=== PATIENT | female | born 1970 | race Caucasian/White ===

== ENCOUNTER 2017-11-24 20:15 | Emergency (ER) | payer OTHER, BC ==
[~2017-11-24] VITALS: Ht 170.2 cm; Wt 75.0 kg
[2017-11-24] MEDS ORDERED: IBUPROFEN 800 MG TABLET. PO ONE (20:45)
--- NOTE | 2017-11-24 22:09 | PHYS DOC ---
Adult General Chief Complaint Chief Complaint: LOWEREXTREMITY INJURY HPI HPI 47-year-old female came to the emergency department after an injury to her left mid leg. Patient was working outside on her forearm when her leg was pinned against the surface by part of a tractor. The injury was fci between her knee and her ankle. She is able to bear weight but the area is sore. The calf muscles are sore when she moves her ankle. Minimal local swelling. Denies knee or ankle pain. No other complaints. Patient does not take blood thinners and has no history of coagulopathy Review of Systems Review of Systems Constitutional: Denies fever or chills [] Eyes: Denies change in visual acuity, redness, or eye pain [] HENT: Denies nasal congestion or sore throat [] Respiratory: Denies cough or shortness of breath [] Cardiovascular: No additional information not addressed in HPI [] GI: Denies abdominal pain, nausea, vomiting, bloody stools or diarrhea [] : Denies dysuria or hematuria [] Musculoskeletal: Denies back pain or joint pain [] Integument: Denies rash or skin lesions [] Neurologic: Denies headache, focal weakness or sensory changes [] Endocrine: Denies polyuria or polydipsia [] All other systems were reviewed and found to be within normal limits, except as documented in this note. Current Medications Current Medications Current Medications Medications (Trade) Dose Ordered Sig/Tonio Start Time Stop Time Status Last Admin Dose Admin Ibuprofen (Motrin) 800 mg 1X ONCE 11/24/17 20:45 11/24/17 20:48 DC 11/24/17 21:23 800 MG Allergies Allergies Allergies Coded Allergies Type Severity Reaction Last Updated Verified No Known Drug Allergies 11/24/17 No Physical Exam Physical Exam Left lower extremity with mild soft tissue tenderness lateral aspect left mid leg. No tenderness of the knee or ankle. No hematoma. Trace ecchymosis but normal range of motion of foot and ankle without difficulty. Soft compartments. Neurovascularly intact distally. Constitutional: Well developed, well nourished, no acute distress, non-toxic appearance. [] HENT: Normocephalic, atraumatic, bilateral external ears normal, oropharynx moist, no oral exudates, nose normal. [] Eyes: EOMI, conjunctiva normal, no discharge. [] Neck: Normal range of motion, no tenderness, supple, no stridor. [] Cardiovascular: No tachycardia Lungs & Thorax: Normal respiratory rate with no asymmetry of the chest wall excursion and no increased work of breathing Abdomen: Nondistended abdomen Skin: Warm, dry, no erythema, no rash. [] Back: Normal supple appearing neck Extremities: no cyanosis, no clubbing, ROM intact, no edema. [] Neurologic: Alert and oriented X 3, normal motor function, normal sensory function, no focal deficits noted. [] Psychologic: Affect normal, judgement normal, mood normal. [] EKG EKG [] Radiology/Procedures Radiology/Procedures X-ray left tib-fib negative for fracture unremarkable study interpreted by me[] Course & Med Decision Making Course & Med Decision Making Signs and symptoms consistent with contusion with no clinical evidence of compartment syndrome or fracture. X-ray negative. No further workup or treatment indicated at this time. Patient were to take NSAIDs rest ice and elevate and follow-up with her primary care physician. Discussed with patient at length what signs of evolving compartment syndrome would be like and she is aware to return immediately for intractable pain in the setting of worsening swelling [] Dragon Disclaimer Dragon Disclaimer This electronic medical record was generated, in whole or in part, using a voice recognition dictation system. Departure Departure: Impression: Primary Impression: Contusion of left leg Disposition: 01 HOME, SELF-CARE Condition: IMPROVED Referrals: ARIELA GERMAIN (PCP) Patient Instructions: Contusion Additional Instructions: You have suffered a contusion to your left leg. Your x-ray shows no fractures or abnormality of the bone. Rest, apply ice, and elevate above your heart whenever possible over the next day. Use an anti-inflammatory medicine as directed and Tylenol as well if necessary for discomfort. Follow-up with your doctor and return immediately for new severe worsening symptoms, specifically, as discussed, if your pain becomes uncontrolled and severe which could represent an evolving compartment syndrome. PHILLIP MARIE MD November 24, 2017 22:09
[2017-11-24 22:35] VITALS: BP 136/79
--- NOTE | 2017-11-25 08:48 | RAD ---
EXAM: Left tibia and fibula, 2 views. HISTORY: Pain. COMPARISON: None. FINDINGS: Frontal and lateral views of the tibia and fibula are obtained. There is no fracture, dislocation or subluxation. There is no periosteal reaction or lytic or sclerotic osseous lesion. The ankle mortise is intact. No osteochondral lesion is seen. There is chondrocalcinosis involving the medial and lateral compartments of the knee. IMPRESSION: No acute osseous finding. Electronically signed by: Laura Chau MD (11/25/2017 8:45 AM) [id number]
== END 2017-11-24 22:51 | disposition home or self-care (01) ==
LOC: ER 20:15
DX: S80.12XA Contusion of left lower leg, initial encounter (principal); W22.8XXA Striking against or struck by other objects, initial encounter; Y93.89 Activity, other specified; Y99.8 Other external cause status; Y92.89 Other specified places as the place of occurrence of the external cause
CPT/HCPCS: 73590; 99284